=== PATIENT | female | born 1995 | race Caucasian/White ===

== ENCOUNTER → 2024-02-16 06:54 | Outpatient (REF) | payer OTHER, SELFPAY | LOC: PNTC 06:54 | PROVIDERS: ATTENDING PHYSICIAN Obstetrics & Gynecology | DX: O34.219 Maternal care for unspecified type scar from previous cesarean delivery (principal) | CPT/HCPCS: 76805 ==

== ENCOUNTER → 2024-07-16 16:35 | Outpatient (REF) | payer OTHER, SELFPAY | LOC: RCS 16:35 | PROVIDERS: ATTENDING PHYSICIAN Internal Medicine Cardiovascular Disease | DX: R00.2 Palpitations (principal); Z3A.37 37 weeks gestation of pregnancy | CPT/HCPCS: 93225; 93226 ==

== ENCOUNTER → 2024-07-23 14:58 | Outpatient (REF) | payer OTHER, SELFPAY | LOC: RCS 14:58 | PROVIDERS: ATTENDING PHYSICIAN Internal Medicine Cardiovascular Disease; FAMILY PHYSICIAN Family Medicine | DX: R00.2 Palpitations (principal) | CPT/HCPCS: 93306 ==

== ENCOUNTER 2024-07-28 13:27 | Inpatient (IN) | payer OTHER, SELFPAY ==
[2024-07-28 12:16] LABS: % Basophils 0.2 % (0-2); % Eosinophils 0.5 % (0-6); % Immature Granulocytes 1.1 % (0-0.5); % Lymphocytes 14.9 % (20.5-51.1); % Monocytes 5.3 % (1.7-9.3); Absolute Eosinophils 0.1 10^3/uL (0-0.7); Absolute Immature Granulocytes 0.1 10^3/uL (0-0.05); Absolute Lymphocytes 1.9 10^3/uL (1.2-3.4); Absolute Monocytes 0.7 10^3/uL (0.1-0.6); Hematocrit 36.6 % (37.0-47.0); Hemoglobin 13.1 g/dL (12.0-16.0); Mean Corp Hgb Conc. 35.8 g/dL (33.0-37.0); Mean Corpuscular Hgb 30.9 pg (27.0-31.0); Mean Corpuscular Volume 86.3 fL (81.0-99.0); Mean Platelet Volume 9.7 fL (7.4-10.4); Nucleated Red Blood Cells % 0 %; Platelet Count 225 10^3/uL (130-400); Red Blood Cell Count 4.24 10^6/uL (4.20-5.40); Red Cell Dist. Width 12.6 % (11.5-14.5); White Blood Cell Count 12.8 10^3/uL (4.8-10.8)
[2024-07-28 12:28] LABS: ALT (SGPT) 18 U/L (0-35); AST (SGOT) 22 U/L (14-36); Alkaline Phosphatase 110 U/L (38-126); Blood Urea Nitrogen 5 mg/dl (7-17); Calcium 9.2 mg/dl (8.4-10.2); Carbon Dioxide 21 mmol/L (22-30); Chloride 102 mmol/L (98-107); Glucose 111 mg/dl (70-99); Potassium 4.3 mmol/L (3.5-5.1); Sodium 137 mmol/L (135-145); Total Bilirubin 0.4 mg/dl (0.2-1.3); Total Protein 6.6 g/dl (6.3-8.2); eGFR > 60.00
[2024-07-28 12:33] VITALS: BP 139/79; BMI 31.9
[2024-07-28 12:41] LABS: Protein/creatinine Ratio 0.5; Urine Protein 14 mg/dl
[2024-07-28] MEDS: TYLENOL 1000 MG PO (16:02)
[2024-07-28] MEDS: BICITRA 30 ML PO (16:02)
[2024-07-28] MEDS: ANCEF 10 IV (16:27)
[2024-07-28 16:54] LABS: Urine Albumin Negative (Neg - Trace); Urine Bilirubin Negative (Negative); Urine Character Clear (Clear); Urine Color Yellow; Urine Glucose Negative (Negative); Urine Ketone Negative (Negative); Urine Leukocyte Negative (Negative); Urine Nitrite Negative (Negative); Urine Occult Blood Negative (Negative); Urine Specific Gravity 1.005 (<1.030); Urine Urobilinogen Negative (Neg - 1+)
--- NOTE | 2024-07-28 17:25 | W.IMMPOSTOP ---
Surgical Immed Post Op Note
-
Primary Surgeon: Jesusita Lees DO
Assisting Surgeon: Shayy Cano RN
Pre-op Diagnosis: IUP at 39+2wks, pre-eclampsia without severe features, prior , unfavorable cervix
Post-op Diagnosis: same as above
Procedure Performed: ERLTCS
Anesthesia Type: Spinal
Specimen / Cultures: placenta
Estimated Blood Loss: 300ml
Quantitative blood loss: 105ml
Complications: none
Operative Findings: normal uterus, bilateral tubes and ovaries. Female , weight 8lbs 5oz, Apgars 8/9, clear amniotic fluid. Minimal intraperitoneal scar tissue from prior surgery.
Cuca Lees DO
[2024-07-28] MEDS: TORADOL 15 MG IV (22:55)
[2024-07-29] MEDS: TORADOL 15 MG IV ×4 (04:43→22:59)
[2024-07-29] MEDS: FLUSH (NSS) 3 FLUSH IV ×2 (04:43→23:00)
[2024-07-29] MEDS: MYLICON 80 MG PO (05:12)
[2024-07-29 05:33] LABS: Hematocrit 31.7 % (37.0-47.0); Hemoglobin 11.5 g/dL (12.0-16.0); Mean Corp Hgb Conc. 36.3 g/dL (33.0-37.0); Mean Corpuscular Hgb 30.3 pg (27.0-31.0); Mean Corpuscular Volume 83.6 fL (81.0-99.0); Mean Platelet Volume 9.7 fL (7.4-10.4); Platelet Count 204 10^3/uL (130-400); Red Blood Cell Count 3.79 10^6/uL (4.20-5.40); Red Cell Dist. Width 12.6 % (11.5-14.5); White Blood Cell Count 17.1 10^3/uL (4.8-10.8)
[2024-07-29] MEDS: PRENATAL PLUS 1 TABLET PO (07:40)
[2024-07-29] MEDS: SENOKOT-S 1 TABLET PO (07:41)
--- NOTE | 2024-07-29 08:06 | W.PN.ANS.POP ---
Anesthesia Post Operative
- Anesthesia Post Op Note
Vital Signs Stable-See Nursing Note: Yes
Airway Patent: Yes
Adequate Pain Control: Yes
Change in Mental Status: No
Current Postoperative Nausea & Vomiting: No
Anesthesia Complications: No
General Anesthetic Recall: No
Unplanned Admission: No
Post Op Hydration Adequate: Yes
[2024-07-29] MEDS: RHOGAM 300 MCG IM (17:04)
[2024-07-30] MEDS: MOTRIN 600 MG PO (06:22)
[2024-07-30] MEDS: PRENATAL PLUS 1 TABLET PO (09:07)
[2024-07-30] MEDS: SENOKOT-S 1 TABLET PO (09:07)
[2024-07-30 11:52] LABS: Syphilis/T. pallidum Ab Reflex Negative (Negative)
--- NOTE | 2024-07-30 16:01 | W.DS.TRANS ---
DC Summary - Gold Layer
-
Discharge Instructions:
Discharge Diagnosis/Procedures delivery
Instructions:
Stand-Alone Forms: LDRP Delivery
LDRP Hypertensive Disorders
Changes to Home Medications: No
Discharge Medications:
DC Medications w/original date entered in [facility]
prenat.vits,justin,kib-ccfz-kunlo 1 tab DAILY Supplement 07/28/24
acetaminophen 325 mg tablet 650 mg (2 x 325 mg) PO Q4HPRN PRN mild pain #0 tabs 07/30/24
ibuprofen 600 mg tablet 600 mg PO Q6HPRN PRN cramps #40 tabs 07/30/24
vitamin with calcium no.72-iron 27 mg-folic acid 1 mg tablet (WesTab Plus) 1 tab PO DAILY #0 tabs 07/30/24
sennosides 8.6 mg-docusate sodium 50 mg tablet 1 tab PO DAILYPRN PRN constipation #0 tabs 07/30/24
simethicone 80 mg chewable tablet 80 mg PO TIDPRN PRN flatulence #0 tabs 07/30/24
Home Medication Changes
Pending Results: No
Total time spent discharging patient (in min): 20
== END 2024-07-30 18:23 | disposition home or self-care (01) | DRG 788 ==
LOC: LDRP 13:27
PROVIDERS: Obstetrics & Gynecology; ADMITTING PHYSICIAN Obstetrics & Gynecology; ATTENDING PHYSICIAN Obstetrics & Gynecology; FAMILY PHYSICIAN Family Medicine
PROC: 10D00Z1 Extraction of Products of Conception, Low, Open Approach (ICD-10-PCS; 2024-07-28)
PROC: 3E0234Z Introduction of Serum, Toxoid and Vaccine into Muscle, Percutaneous Approach (ICD-10-PCS; 2024-07-29)
DX: O14.04 Mild to moderate pre-eclampsia, complicating childbirth (principal); Z01.818 Encounter for other preprocedural examination (principal); O34.211 Maternal care for low transverse scar from previous cesarean delivery; O99.824 Streptococcus B carrier state complicating childbirth; O32.8XX0 Maternal care for other malpresentation of fetus, not applicable or unspecified; O34.43 Maternal care for other abnormalities of cervix, third trimester; Z3A.39 39 weeks gestation of pregnancy; Z37.0 Single live birth; Z86.79 Personal history of other diseases of the circulatory system
CPT/HCPCS: 88307; 36415; 76815; 80053; 81003; 82570; 84156; 85025; 85027; 85461; 86780; 86850; 86870; 86900; 86901; J2790